=== PATIENT | male | born 1945 | race Caucasian/White ===

== ENCOUNTER 2024-08-01 13:05 | Emergency (ER) | payer OTHER ==
[~2024-08-01] VITALS: Ht 160 cm; Wt 71.0 kg
[2024-08-01 13:09] VITALS: O2SAT 97
[2024-08-01 14:19] LABS: BASOPHILS % 1.4 % (0.0-2.0); EOSINOPHILS % 3.6 % (0.0-5.0); HEMATOCRIT. 36.1 % (42.0-52.0); HEMOGLOBIN. 11.7 g/dL (14.0-18.0); LYMPHOCYTES % 14.9 % (20.0-50.0); MEAN CORPUSCULAR HEMOGLOBIN 26.7 pg (28.0-32.0); MEAN CORPUSCULAR HGB CONC 32.4 g/dL (31.0-37.0); MEAN CORPUSCULAR VOLUME 82.3 fL (80.0-94.0); MEAN PLATELET VOLUME 6.1 fl (7.4-10.4); MONOCYTES % 8.4 % (2.0-8.0); NEUTROPHILS % 71.7 % (40.0-76.0); PLATELET 328 x1000/uL (130-400); RED BLOOD CELL COUNT 4.38 mill/uL (4.7-6.1); RED CELL DISTRIBUTION WIDTH 15.8 % (11.6-14.6); WHITE BLOOD COUNT 9.1 x1000/uL (4.5-11.0)
[2024-08-01 14:31] LABS: CHLORIDE 103 mEq/L (98-107); INR 0.9; POTASSIUM 4.7 mEq/L (3.5-5.1); PROTHROMBIN TIME 10.3 sec (9.6-11.0); SODIUM 133 mEq/L (136-145)
[2024-08-01 14:32] LABS: CARBON DIOXIDE 25 mEq/L (21-32)
[2024-08-01 14:33] LABS: CALCIUM 8.4 mg/dL (8.7-10.4)
[2024-08-01 14:37] LABS: CREATININE 1.3 mg/dL (0.6-1.3); GLUCOSE 212 mg/dL (70-105)
[2024-08-01 14:38] LABS: TROPONIN I HIGH SENSITIVITY 13 ng/L (3.0-53); UREA NITROGEN BLOOD 17 mg/dL (9-23)
[2024-08-01 14:39] LABS: ALANINE AMINOTRANSFERASE 76 IU/L (10-49); ALBUMIN 3.9 g/dL (3.2-4.8); ASPARTATE AMINOTRANSFERASE 44 IU/L (<34)
[2024-08-01 14:40] LABS: BILIRUBIN TOTAL 0.4 mg/dL (0.1-1.0); PROTEIN TOTAL 6.8 g/dL (6.0-8.3)
[2024-08-01 14:42] LABS: BILIRUBIN DIRECT < 0.1 mg/dL (<=3.0)
[2024-08-01 19:09] LABS: TROPONIN I HIGH SENSITIVITY 15 ng/L (3.0-53)
[2024-08-01] MEDS: LABETALOL 5MG/ML 4ML INJ IV ONE (20:45)
[2024-08-01 20:53] VITALS: BP 145/58; PULSE 82; RESP 8; TEMP 36.78072; O2SAT 99
== END 2024-08-01 20:52 | disposition short-term general hospital (02) ==
LOC: ER 13:05
DX: E11.9 Type 2 diabetes mellitus without complications (principal); I25.2 Old myocardial infarction; I10 Essential (primary) hypertension; R07.89 Other chest pain
CPT/HCPCS: 99291; 96374; 80076; 80048; 83880; 83690; 85025; 85610; 85730; 84484; 36415; 71045; 93005; J3490; 99285